=== PATIENT | female | born 1985 | race Caucasian/White ===

== ENCOUNTER 2018-12-23 15:54 | Emergency (ER) | payer SELFPAY ==
[~2018-12-23] VITALS: Ht 162.6 cm; Wt 59.0 kg
--- NOTE | 2018-12-23 17:01 | ED Integumentary General ---
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 Since that time it has drained green pus and skin has peeled. Has taken 10 days worth of doxycycline 100 mg twice a day that was left over from another time. States the finger is better but still is very tender and draining some fluid. Source: patient, family Exam Limitations: no limitations History of Present Illness Date Seen by Provider: Dec 23, 2018 Time Seen by Provider: 16:56 Initial Comments Patient presents to ER by private conveyance with chief complaint of 8+ days of swelling, burning pain in her right index finger distal tip. She says it started off on the side of her cuticle with some white punctate dots/blisters. She says the pain harmon and shoots up her finger. Distal worse pain she's ever had. She had some doxycycline so she started taking it the same day and putting triple antibiotic ointment on it. It did not improve so she decided to come to the ER. She has not seen anybody else for it yet. It has not drained any thing after the first few days of having some greenish white discharge. No fevers chills or other significant medical history. Allergies and Home Medications Patient Home Medication List Home Medication List Reviewed: Yes Review of Systems Review of Systems Constitutional: No chills, No fever, No malaise EENTM: No ear discharge, No ear pain Respiratory: No cough, No phlegm, No short of breath Cardiovascular: No chest pain, No edema Gastrointestinal: No abdominal pain, No constipation Past Tvfjjsh-Bioprs-Qcoldf Hx Patient Social History Alcohol Use: Denies Use Recreational Drug Use: No Smoking Status: Current Everyday Smoker Type Used: Cigarettes 2nd Hand Smoke Exposure: Yes Recent Foreign Travel: No Contact w/Someone Who Travel: No Recent Infectious Disease Expo: No Physical Abuse: No Sexual Abuse: No Mistreated: No Fear: No Physical Exam Vital Signs Vital Signs - First Documented 12/23/18 16:00 Temp 99.4 Pulse 97 Resp 16 B/P (MAP) 117/75 (89) Pulse Ox 99 Capillary Refill : Less Than 3 Seconds General Appearance: WD/WN, no apparent distress Cardiovascular: normal peripheral pulses, regular rate, rhythm Respiratory: no respiratory distress, no accessory muscle use Extremities: other (right hand second digit distal phalanx on the medial dorsal side has had swelling, erythema, tenderness to palpation, no evidence of fluctuance or pointing.) Progress/Results/Core Measures Results/Orders Vital Signs/I&O 12/23/18 16:00 Temp 99.4 Pulse 97 Resp 16 B/P (MAP) 117/75 (89) Pulse Ox 99 Blood Pressure Mean: 89 Progress Progress Note : Time: 17:31 Progress Note Consistent with a herpetic raza. We'll provide her with some gabapentin and acyclovir. Departure Impression Primary Impression: Herpetic raza Disposition: HOME, SELF-CARE Condition: Stable Departure-Patient Inst. Decision time for Depature: 17:32 Referrals: NO,LOCAL PHYSICIAN (PCP) Primary Care Physician Patient Instructions: Cold Sores (Oral Herpes) (DC) Add. Discharge Instructions: Please refer to the handout on oral herpes as it is the same virus however is infected your finger. It usually resolves in 2-3 weeks on its own however it may recur. Keep the skin moisturized with some Vaseline and covered with either a dressing or gloves while at work or in public. Use Tylenol, ibuprofen and gabapentin 100 mg up to 3 times a day as necessary for pain. ordnance truck installation supervisor the acyclovir and start taking it 5 times a day for 7 days. All discharge instructions reviewed with patient and/or family. Voiced understanding. Scripts Acyclovir (Acyclovir) 200 Mg Capsule 200 MG PO 5XD for 7 Days, #35 CAP 0 Refills Prov: DARA KIRK 12/23/18 Gabapentin (Gabapentin) 100 Mg Capsule 100 MG PO Q8H PRN for PAIN-MODERATE, #20 CAP 0 Refills Prov: DARA KIRK 12/23/18 Work/School Note: Work Release Form Date Seen in the Emergency Department: Dec 23, 2018 Return to Work: Dec 24, 2018 Restrictions: Need Release from Doctor Other Restrictions Listed Below: Must keep finger dressed and wear gloves while at work until lesions resolv DARA KIRK Dec 23, 2018 17:01
[2018-12-23] MEDS ORDERED: ACYC200C PO (17:37)
[2018-12-23] MEDS ORDERED: GABA-486 PO (17:37)
[2018-12-23 17:45] VITALS: BP 117/75
== END 2018-12-23 17:47 | disposition home or self-care (01) ==
LOC: ER FS 15:57
DX: B00.89 Other herpesviral infection (principal); F17.210 Nicotine dependence, cigarettes, uncomplicated
CPT/HCPCS: 99282